=== PATIENT | male | born 1955 | race Caucasian/White ===

== ENCOUNTER 2016-07-12 06:26 | Inpatient (IN) ==
[2016-07-12] MEDS ORDERED: Dexamethasone 4 MG/ML VIAL ONE (06:42)
[2016-07-12] MEDS ORDERED: *HR* Rocuronium Bromide 50 MG/5 ML VIAL ONE (06:42)
[2016-07-12] MEDS ORDERED: Lidocaine -MPF 2% 2 ML VIAL ONE ×2 (06:42→07:51)
[2016-07-12] MEDS ORDERED: Ondansetron 4 MG/2 ML VIAL ONE (06:42)
[2016-07-12] MEDS ORDERED: *HR* Phenylephrine 10 MG/ML VIAL ONE (06:42)
[2016-07-12] MEDS ORDERED: *HR* Etomidate 40 MG/20 ML VIAL IVP ONE (06:43)
[2016-07-12] MEDS ORDERED: *HR* Heparin 5,000 UNIT/ML VIAL ONE (06:43)
[2016-07-12] MEDS ORDERED: *HR* FentaNYL (PF) 100 MCG/2 ML VIAL ONE ×2 (06:48→08:08)
[2016-07-12] MEDS ORDERED: *HR* Midazolam HCl 5 MG/5 ML VIAL IVP ONE (06:48)
[2016-07-12] MEDS ORDERED: NiCARdipine 2.5 MG/10 ML Syringe IVPB ONE (06:51)
[2016-07-12] MEDS ORDERED: CeFAZolin Pre 2,000 MG/100 ML 2,000 MG/100 ML BAG IVPB ONE (06:59)
[2016-07-12] MEDS ORDERED: Vancomycin 1,500 MG in D5% in Water 250 ML IVPB ONE ×2 (06:59→20:00)
[2016-07-12] MEDS ORDERED: Ringers Solution, Lactated 1,000 ML IVC SCH ×2 (07:00→11:30)
--- NOTE | 2016-07-12 07:01 | History & Physical Report ---
Date of Encounter: 07/12/16 Time of Encounter: 06:55 24 Hour HP Update - Instructions Instructions: If the History and Physical is less than 30 days old and was completed prior to A.M. admission and or procedure and has NOT been updated on calendar day of procedure please complete this update prior to performing procedure. - Update Patient reports changes in Medical Condition: No Changes in assessment/condition: No Changes in Medication: No Preop tests/diagnostics Reviewed: Yes Surgery Remains Indicated: Yes Consent for Planned Operative Procedure(s) Verified: Yes - Pre-Operative Checklist Preoperative Checklist Indicated: Yes Prophylactic Antibiotic Ordered: Yes (vancomycin due to MRSA risk) Home Medications Include Beta Zhen: No Beta Zhen Taken Today (Day of Surgery): No Beta Zhen Taken Yesterday (Day Prior to Surgery): No Is VTE Prophylaxis Indicated?: Yes
--- NOTE | 2016-07-12 07:08 | Anesthesia Evaluation PreOp ---
Date of Encounter: 07/12/16 Time of Encounter: 07:05 - Past History Planned Operation: endovascular AAA repair, right femoral endarterectomy Cardiac History: Denies any Significant Hx Pulmonary History: Smoker, Pack/yr (35pk/yr) HEEL TURNER History: Denies Any Significant HX Other Medical History: Denies Any Significant HX Anesthesia History: No Prior Anesthetic Complications, Past Anesthesia (right RENO, halo placement for cervical fracture) Alcohol Use: heavy, recent Drug use: none Medications and Allergies Acetaminophen [Tylenol] 1,000 mg PO Q6HR #90 tablet 06/20/16 [Rx] Aspirin Enteric Coated [Aspirin EC] 81 mg PO DAILY #90 tablet. 06/20/16 [Rx] Allergies No Known Allergies Allergy (Verified 06/20/16 10:49) - Meds/Allergy Pre-op Review Medications Reviewed: Yes Allergies Reviewed: Yes Beta Blockers on Current Med List: No Anesthesia Results - Labs outside labs from [facility] shows H/H of 17.4/52.2, plts 276, Na142, K4.3, BUN 9, Creat .85 - Imaging EKG: report reviewed (NSR) Additional studies: EF64%, negative stress test Anesthesia Exam Height: 1.83m (72in) Weight: 93kg (206lbs) NPO (# of Hours): 8 Pain Scale: 0 Pain Scale Used: Numeric (1 - 10) - HEENT Pupil (Motor): EOMI Mallampati: II Teeth: Normal Oral Opening: Greater than 3 - HEEL TURNER LOC: Oriented HEEL TURNER Motor: Normal RUE, Normal LUE, Normal RLE, Normal LLE, Normal Face HEEL TURNER Sensory: Normal: RUE, LUE, RLE, LLE, Face - Cardiac Rhythm: Regular Murmur: None - Pulmonary Breath Sounds: bilateral Clear Respiratory Effort: Symmetrical Anesthesia Assess/Plan ASA Score: 3 Modified Douglas Scale for Level of Consciousness: Cooperative, oriented, and tranquil Anesthetic Plan: General Monitoring Plan: Standard Monitors, A-Line Recovery Plan: PACU (Discussed risks of GA, need for arterial line and possible need for blood. Possible difficulty with extubation due to smoking (last cigarette this morning). Questions answered and agrees to proceed.)
[2016-07-12] MEDS ORDERED: Vancomycin 1,000 MG VIAL ONE (07:09)
[2016-07-12] MEDS ORDERED: Heparin 1,000 UNITS/500 mL NS 2,000 ML ONE (07:09)
[2016-07-12] MEDS ORDERED: Albuterol 2.5 MG/3 ML NEBULIZER IH ONE (07:10)
[2016-07-12] MEDS ORDERED: Heparin 1,000 UNITS/500 mL NS 0 ML ONE (07:23)
[2016-07-12] MEDS ORDERED: *HR* Metoprolol 5 MG/5 ML VIAL IVP ONE (08:35)
--- NOTE | 2016-07-12 08:59 | Anesthesia Procedures ---
Date of Encounter: 07/12/16 Time of Encounter: 07:55 Procedures: Anesthesia - Arterial Line Consent obtained: written consent Time out performed: Yes Sedation: Versed (mg): 5 Sedation: Fentanyl (mcg): 100 Amount of Anesthetic used (mls): 1 Size (Gauge): 20 Length (inches): 1 3/4 Technique Used: sterile prep, guide wire technique, direct puncture technique Post-Procedure: line taped into place Patient tolerated procedure: well, no complications Complications: none Site: Radial R (attempt x 1)
[2016-07-12] MEDS ORDERED: *HR* HYDROmorphone 2 MG/ML SYRINGE ONE (09:37)
[2016-07-12] MEDS ORDERED: *HR* OxyCODONE/APAP 5/325 TABLET PO PRN (11:30)
[2016-07-12] MEDS ORDERED: *HR* Promethazine 25 MG/ML VIAL IVP PRN (11:30)
--- NOTE | 2016-07-12 11:37 | Operative Note ---
Date of procedure: 07/12/16 Pre-op diagnosis: 5.2cm Abdominal Aortic Aneurysm, PVD with claudication Post-op diagnosis: same Procedure: 1. Introduction of catheter into the aorta via right common femoral artery. 2. Introduction of catheter into the aorta via left common femoral artery. 3. Right femoral vessel exposure for endograft placement. 4. Left femoral vessel exposure for endograft placement. 5. Endograft repair of abdominal aortic aneurysm with Cook Zenith graft and two docking limbs including radiologic supervision and interpretation. 6. Right deep and superficial femoral endartectomy with bovine pericardial patch angioplasty. Complications: None Anesthesia: GETA Surgeon: Ignacio Downing Estimated blood loss (cc): 150 Specimen: Right femoral plaque Condition: stable Disposition: PACU Procedure in Detail: Indications: The patient is a 60 year old male who was found to have an abdominal aortic aneurysm. He also presented to clinic with disabling right lower extremity claudication. An angiogram revealed severe right deep and superficial femoral artery stenosis. Procedure: The patient was identified, brought to the operating room and placed in the supine position on the operating room table. After induction of general endotracheal anesthesia, the patient was cleaned and draped in normal sterile fashion. Oblique incisions were made over both groins sharply. Hemostasis was obtained with electrocautery. Using blunt and sharp and electrocautery dissection, the bilateral common, deep and superficial femoral arteries were dissected circumferentially and surrounded with Vesseloops. At this point, the patient received 5000 units of heparin intravenously and then bilateral femoral punctures with large-bore needles were performed. Bentson wires were advanced into the aorta under fluoroscopic view. Given the anatomy, the main body was selected to be the right side of the patient. The needles were exchanged for bilateral #8-Argentine sheaths and a long Pigtail catheter was advanced over the right wire into the aortic arch. The wire was replaced with a Lunderquist wire. The catheter was removed and repositioned in the suprarenal aorta via the left femoral artery. The main body was inserted over the Lunderquist wire with the contralateral limb being in the anterolateral position. An aortogram was then performed at the level of the renal artery. The graft was positioned just inferior to the renal arteries and the first 2 segments were deployed. Again an aortogram revealed adequate infrarenal placement. The graft was then further opened to the contralateral limb exposed. A final angiogram was performed confirming adequate infrarenal placement. The suprarenal stent was deployed in the usual fashion. The contralateral limb was then selected with a Bentson wire using a guiding catheter. Intragraft placement of the wire was confirmed by placing the pigtail and spinning it freely as well as injecting a small amount of contrast. A lunderquist wire was advanced into the aortic arch via the pigtail catheter on the left. An oblique view of the pelvis was performed with contrast to size the left extension limb. The #8-Argentine sheath was removed and exchanged for the appropriate limb, which was advanced under fluoroscopic view and positioned. It was then expanded. The introducer was removed. The remaining portion of the main body was deployed, the top cap was retrieved and the introducer was removed. An oblique view of the right pelvis was performed in a similar fashion to determine the length of the graft on the right. The graft extension was then advanced on the right and positioned in the usual fashion. Upon completion of the graft docking limb extension, a Coda balloon was then advanced into the graft proximal and distal endpoints as well as overlap were expanded with gentle pressure. The balloon was left in the suprarenal position and a Flush catheter was placed in the suprarenal aorta. A flush completion angiogram revealed no evidence of an endoleak. Tension was applied to the Vesseloops in the groins. The bilateral sheaths were then removed. After confirming hemodynamic stability, the wires were then removed. The left femoral arteriotomy was repaired with a running 6-0 Prolene. A longitudinal ateriotomy was made into the right common femoral artery inclusive of the arteriotomy site. It was extended distally into the right superficial femoral artery through the high grade stenotic segment. Using a dental [place], a standard endarterectomy was performed on the deep femoral artery and then on the superficial femoral artery. Proximal and distal endpoints were inspected. No elevated flaps were noted. A bovine pericardial patch was cut to fit the defect and sutured in place with running 6-0 Prolene. Prior to completing the patch anastomosis, each vessel was flushed individually, then reoccluded. Heparinized saline was infused into the lumen. The patch was completed and flow was restored. Antibiotic irrigation was infused into the groins. Platelet rich and platelet poor plasma were infused into the incisions. The bilateral groins were closed with a single layer of 2-0 Vicryl followed by two layers of 3-0 Vicryl followed by a layer of 3-0 monocryl in the subcuticular region. Sterile dressings were applied. The patient was then extubated and taken to the recovery room in stable condition. Device Sizes: 1. Main Body: [id number] 2. Right limb: [id number] 3. Left limb: [id number]
--- NOTE | 2016-07-12 11:56 | Anesthesia Evaluation Post Op ---
Date of Encounter: 07/12/16 Time of Encounter: 11:54 - Vital Signs Vital Signs: Selected Entries 07/12/16 11:45 Temperature 97.6 F Pulse Rate 59 Respiratory Rate 16 Blood Pressure 186/86 O2 Sat by Pulse Oximetry 94 L - Lungs Lungs: Clear Ascult./Percussion - Airway Airway: Non-obstructed - Cardiovascular Regular Rate - Mental Status Mental Status: Alert & Oriented, Answers Appropriately - Pain Pain Scale: 0 Pain Scale used: Numeric (1 - 10) - Nausea Vomiting Nausea Vomiting: Not Present - Hydration Hydration: Tolerates oral liquids, Paz catheter Notes: 07/12/16 11:55 Patient required Vasotec and Hydralazine in PACU. BP is better. - Discharge PostOp Status: Transfer Patient to floor
[2016-07-12] MEDS ORDERED: *HR* HYDROcodone/Acet 5/325 mg TABLET PO PRN (12:04)
[2016-07-12] MEDS ORDERED: Naloxone 0.4 MG/ML INJ IVP PRN (12:04)
[2016-07-12] MEDS ORDERED: Acetaminophen 325 MG TABLET PO PRN (12:04)
[2016-07-12] MEDS ORDERED: *HR* Labetalol 20 MG/4 ML SYRINGE IVP PRN (12:04)
[2016-07-12] MEDS ORDERED: *HR* OxyCODONE Immed Rel 5 MG TABLET PO PRN (12:04)
[2016-07-12] MEDS ORDERED: Ondansetron 4 MG/2 ML VIAL IVP PRN (12:04)
[2016-07-12] MEDS ORDERED: *HR* Morphine 2 MG/ML SYRINGE IVP PRN (12:04)
[2016-07-12] MEDS: Aspirin 325 MG TABLET PO SCH (14:31)
[2016-07-12] MEDS: *HR* Metoprolol 5 MG/5 ML VIAL IVP SCH ×3 (14:32→23:48)
[2016-07-12] MEDS: ceFAZolin 2,000 MG in D5% in Water 100 ML IVPB SCH ×2 (16:06→23:48)
[2016-07-13 04:23] LABS: BUN/Creatinine Ratio 14 (6-26); Blood Urea Nitrogen 13 mg/dL (8-26); Calcium 9.3 mg/dL (8.6-10.8); Carbon Dioxide 19 mEq/L (19-29); Chloride 102 mEq/L (98-109); Glucose 124 mg/dL (70-99); Osmolality,Calculated 278 (280-300); Potassium 4.3 mEq/L (3.5-4.5); Sodium 133 mEq/L (136-145); eGFR For African Americans > 60 (> 60); eGFR For Non-African Americans > 60 (> 60)
[2016-07-13 04:31] LABS: Basophils % 0.2 %; Eosinophils % 0.1 %; Hematocrit 42.1 % (37.5-50.1); Hemoglobin 14.5 g/dL (12.9-16.9); Immature Granulocytes % 0.6 % (0-4); Lymphocytes # 1.4 K/mcL (0.6-4.6); Lymphocytes % 6.3 %; Mean Corpuscular HGB Conc 34.4 g/dL (31.6-35.5); Mean Corpuscular Hemoglobin 33.4 pg (28.0-33.3); Mean Platelet Volume 10.9 fL (9.4-12.4); Monocytes # 1.9 K/mcL (0.0-1.3); Monocytes % 8.8 %; Neutrophils # 18.2 K/mcL (1.6-8.9); Platelet Count 196 K/mcL (140-400); Red Blood Count 4.34 M/mcL (4.19-5.50); Red Cell Distribution Width 12.4 % (11.5-14.5)
[2016-07-13] MEDS ORDERED: *HR* Heparin 5,000 UNIT/ML VIAL SQ SCH ×2 (06:00→07:00)
[2016-07-13] MEDS: *HR* Metoprolol 5 MG/5 ML VIAL IVP SCH (06:12)
--- NOTE | 2016-07-13 07:46 | Discharge Summary ---
Date of Encounter: 07/13/16 Time of Encounter: 08:05 - Discharge Diagnosis (1) Abdominal aortic aneurysm (AAA) without rupture Priority: Primary Status: Chronic Comments: The patient is postoperative day #1 after endograft repair of his abdominal aortic aneurysm and right femoral endarterectomy. He tolerated the procedure well. He has no hematoma, his feet are warm and his incisions are healing. He is tolerating a diet. He denies abdominal pain. He will be discharged today. (2) Essential hypertension Priority: Secondary Status: Chronic Comments: The patient was counseled regardnig atherosclerotic risk factor reduction. (3) Tobacco abuse Priority: Secondary Status: Chronic Comments: The patient was counseled regarding smoking cessation. (4) Atherosclerosis of [place] arteries of extremities with intermittent claudication, right leg Priority: Secondary Status: Chronic Comments: The patient underwent a right femoral endarterectomy and is healing well. - Discharge Medications Prescriptions: HYDROcodone/Acet 5/325 mg [[place] 5-325 mg] 1 tab PO Q4H PRN #40 tablet PRN Reason: POSTOPERATIVE PAIN Home Medications: Aspirin 325 - 650 mg PO DAILY PRN 07/12/16 [History] Aspirin 325 mg PO DAILY #0 tablet 07/13/16 [Rx] HYDROcodone/Acet 5/325 mg [[place] 5-325 mg] 1 tab PO Q4H PRN #40 tablet 07/13/16 [Rx] Allergies/Adverse Reactions: Allergies No Known Allergies Allergy (Verified 07/12/16 07:38) Date of admission: 07/12/16 12:03 Primary care physician: Nicholas Tripp MD Procedure(s) Performed: Endograft repair of aortic aneurysm and right femoral endaterectomy. Discharging clinician: Ignacio Downing Anticipated date of discharge: 07/13/16 - Patient Status Disposition: Home, Self-Care Condition: Good Functional capacity at discharge: independent ambulation Overall status at discharge: patient is back to baseline - Discharge Instructions Instructions: Abdominal Aortic Aneurysm (DC), Remote Superficial Femoral Artery Endarterectomy (DC) Follow Up With: Nicholas Tripp MD [Primary Care Provider] - 07/18/16 10:30 am (office called after patient had left, called patient at home with the appointment) Ignacio Downing MD [Partnered Physician] - 08/27/16 1:00 pm Additional Instructions: MAY REMOVE BANDAGE AND SHOWER ON 07/14/16. NO TUB BATHS OR SWIMMING UNTIL 08/03/16. WASH WOUNDS GENTLY AND PAT TO DRY. APPLY DRY GAUZE TO WOUNDS DAILY FOR [address] DOWNING AT [phone] WITH QUESTIONS OR CONCERNS. - Diet and Activity Activity: increase activity as tolerated Diet: low fat, low cholesterol - Hospital Course Hospital course: Mr. Bates is a 60 year old male with a history of an abdominal aortic aneurysm and peripheral vascular disease. He underwent endograft repair of his aneurysm and a right femoral endarterctomy on 07/12/16. He tolerated the procedures well and was discharged in stable condition on postoperative day #1 without complication. - Time Spent with Patient Total time spent providing and/or coordinating discharge services: Exam Vital Signs, Last 4 Hours Pulse BP 07/13/16 06:00 77 165/99 General: Present: Conversant, No Apparent Distress HEENT: Present: Pupils equal Cardiac: Present: Reg Rate and Rhythm, Normal S1 and S2 Lungs: Present: Normal Breath Sounds, No Wheeze, Rales, Rhonchi Neuro: Present: Alert and responsive, No focal deficits noted, Motor nerves grossly intact, Sensory nerves grossly intact Abdomen: Present: Non-tender. Absent: Masses Vascular: Present: Normal capillary refill, Pulse, normal, Surgical incisions ( incisions clean, dry and intact without erythema, draiange or hematoma). Absent : Cyanosis, Edema Skin: Absent: No rashes noted on visualized skin - VTE Documentation of Mechanical Device: Intermittent pneumatic compression device
[2016-07-13] MEDS: Aspirin 325 MG TABLET PO SCH (07:57)
[2016-07-13 08:10] VITALS: BP 153/86
== END 2016-07-13 09:57 | disposition home or self-care (01) | DRG 181 ==
LOC: SAMDAY 06:26 → 2NNU 12:03
PROVIDERS: ADMIT Surgery; ATTEND Surgery

== ENCOUNTER 2018-06-11 11:49 | Inpatient (IN) ==
[~2018-06-11 11:49] MED LIST: Bacitracin 50,000 UNIT, Polymyxin B Sulfate 500,000 UNIT, Sodium Chloride IRRigation 1,... IR ONE; Vancomycin 1,000 MG, Sodium Chloride IRRigation 1,000 ML IR ONE
--- NOTE | 2018-06-11 12:00 | Anesthesia Evaluation PreOp ---
Date of Encounter: 06/11/18 Time of Encounter: 12:26 - Past History Planned Operation: Right Carotid Endarterectomy Cardiac History: HTN, Other (endoAAA repair) Pulmonary History: Smoker (45 years) INTERNAL CARVER History: Denies Any Significant HX Other Medical History: Denies Any Significant HX Anesthesia History: No Prior Anesthetic Complications, Past Anesthesia (EndoAAA repair) Alcohol Use: heavy (4-6 beers daily), recent Drug use: none Medications and Allergies Aspirin 325 - 650 mg PO DAILY PRN 07/12/16 [History] Aspirin 325 mg PO DAILY #0 tablet 07/13/16 [Rx] HYDROcodone/Acet 5/325 mg [[place] 5-325 mg] 1 tab PO Q4H PRN #40 tablet 07/13/16 [Rx] Allergy/AdvReac Type Severity Reaction Status Date / Time No Known Allergies Allergy Verified 07/12/16 07:38 - Meds/Allergy Pre-op Review Medications Reviewed: Yes Allergies Reviewed: Yes Beta Blockers on Current Med List: Yes If Beta Blockers taken, Date/Time (Last Dose taken): 06/11/2018 at 0800 Anesthesia Results - Labs Laboratory Tests 06/03/18 06/03/18 06/03/18 16:08 16:08 16:08 WBC 11.3 H Hgb 16.2 Hct 46.5 Plt Count 246 PT 11.0 INR 1.0 APTT 33.3 Sodium 136 Potassium 4.7 BUN 20 Creatinine 1.51 H - Imaging EKG: report reviewed (06/10/2018 SINUS BRADYCARDIA WITH SINUS ARRHYTHMIA NONSPECIFIC ST & T-WAVE ABNORMALITY) Additional studies: 06/29/2016 Stress Impression: Pharmacologic stress ECG is non-diagnostic for ischemia due to baseline ST-T changes and submaximal HR. Gated EF = 64%. There is a large sized, moderate intensity, fixed inferior, inferoseptal, and apex perfusion defect. Wall motion appears normal. These findings are suggestive of artifact. Perfusion imaging was negative for ischemia. Anesthesia Exam O2 Sat Height 1.88 m Height 1.88 m Weight 82.554 kg Weight 82.554 kg O2 Sat by Pulse Oximetry 97 O2 Sat by Pulse Oximetry 97 O2 Sat by Pulse Oximetry 97 Vital Signs Temp Pulse Resp BP Pulse Ox 97.8 F 50 18 133/79 97 06/11/18 12:00 06/11/18 12:00 06/11/18 12:00 06/11/18 12:00 06/11/18 12:00 Height: 6'2'' Weight: 182 lbs NPO (# of Hours): 8 Pain Scale: 0 Pain Scale Used: Numeric (1 - 10) - HEENT Pupil (Motor): EOMI Mallampati: II Teeth: Normal, Missing Oral Opening: Greater than 3 - INTERNAL CARVER LOC: Oriented INTERNAL CARVER Motor: Normal RUE, Normal LUE, Normal RLE, Normal LLE, Normal Face INTERNAL CARVER Sensory: Normal: RUE, LUE, RLE, LLE, Face - Cardiac Rhythm: Regular Murmur: None - Pulmonary Breath Sounds: bilateral Clear Respiratory Effort: Symmetrical Anesthesia Assess/Plan ASA Score: 3 Level of consciousness: Cooperative, Oriented, Tranquil Anesthetic Plan: General Monitoring Plan: Standard Monitors, A-Line Recovery Plan: PACU
[2018-06-11] MEDS ORDERED: Albuterol 2.5 MG/3 ML NEBULIZER IH ONE (12:15)
[2018-06-11] MEDS ORDERED: CeFAZolin Syr 2,000MG/20 ML 2,000 MG/20 ML SYRINGE IVPB ONE (12:15)
--- NOTE | 2018-06-11 12:24 | History & Physical Report ---
Date of Encounter: 06/11/18 Time of Encounter: 12:15 24 Hour HP Update - Instructions Instructions: If the History and Physical is less than 30 days old and was completed prior to A.M. admission and or procedure and has NOT been updated on calendar day of procedure please complete this update prior to performing procedure. - Update Patient reports changes in Medical Condition: No Changes in examination, assessment, or condition: No Changes in Medication: No Preop tests/diagnostics Reviewed: Yes Surgery Remains Indicated: Yes Consent for Planned Operative Procedure(s) Verified: Yes - Pre-Operative Checklist Preoperative Checklist Indicated: Yes Prophylactic Antibiotic Ordered: Yes (Vancomycin due to risk of MRSA) Home Medications Include Beta Zhen: No Beta Zhen Taken Today (Day of Surgery): No Beta Zhen Taken Yesterday (Day Prior to Surgery): No Is VTE Prophylaxis Indicated?: Yes
[2018-06-11] MEDS: Ringers Solution, Lactated 1,000 ML IVC SCH ×2 (12:28→16:12)
[2018-06-11] MEDS ORDERED: *HR* Morphine 2 MG/ML SYRINGE IVP PRN (12:39)
[2018-06-11] MEDS ORDERED: *HR* OxyCODONE Immed Rel 5 MG TABLET PO PRN ×2 (12:39→19:26)
[2018-06-11] MEDS ORDERED: Lidocaine -MPF 2% 2 ML VIAL ONE ×2 (13:44→14:25)
[2018-06-11] MEDS ORDERED: Dexamethasone 4 MG/ML VIAL ONE (13:44)
[2018-06-11] MEDS ORDERED: Ondansetron 4 MG/2 ML VIAL ONE (13:44)
[2018-06-11] MEDS ORDERED: Lidocaine -MPF 4% 5 ML AMPUL ONE (13:44)
[2018-06-11] MEDS ORDERED: *HR* Succinylcholine 200 MG/10 ML VIAL IVP ONE (13:44)
[2018-06-11] MEDS ORDERED: *HR* FentaNYL (PF) 100 MCG/2 ML VIAL ONE (13:50)
[2018-06-11] MEDS ORDERED: *HR* Midazolam HCl 2 MG/2 ML VIAL ONE (13:50)
[2018-06-11] MEDS ORDERED: *HR* Propofol 200 MG/20 ML VIAL IVP ONE (13:50)
[2018-06-11] MEDS ORDERED: *HR* Remifentanil 2 MG VIAL IVP ONE (13:50)
[2018-06-11] MEDS ORDERED: Protamine Sulfate 50 MG/5 ML VIAL IVP ONE (14:01)
[2018-06-11] MEDS ORDERED: Bupivacaine-MPF 0.25% 10 ML VIAL ONE (14:01)
[2018-06-11] MEDS ORDERED: Heparin 1,000 UNITS/500 mL 1,000 ML ONE (14:01)
[2018-06-11] MEDS ORDERED: Vancomycin 1,000 MG VIAL ONE (14:01)
[2018-06-11] MEDS ORDERED: EPHEDrine 50 MG/ML VIAL ONE ×2 (14:55→15:50)
[2018-06-11] MEDS ORDERED: *HR* PHENYLEPHRINE 1,000 MCG/10 ML SYRINGE IVP ONE (15:34)
[2018-06-11] MEDS ORDERED: *HR* Heparin 5,000 UNIT/ML VIAL ONE (15:44)
[2018-06-11] MEDS ORDERED: *HR* Morphine 10 MG/ML VIAL ONE (17:10)
--- NOTE | 2018-06-11 17:19 | Operative Note ---
Date of procedure: 06/11/18 Pre-op diagnosis: 80% Right internal carotid artery stenosis Post-op diagnosis: same Procedure: Right carotid endarterectomy with hemashield patch angioplasty. Complications: None Anesthesia: GETA Surgeon: Ignacio Downing Was there an wet process miller head assistant present: No Estimated blood loss (cc): 50 Specimen: Right carotid plaque Condition: stable Disposition: PACU Procedure in Detail: Indications: The patient is a 62-year-old male with a history of hypertension, peripheral vascular disease and tobacco abuse. He was found to have an 80-99% right internal carotid artery stenosis. A right carotid endarterectomy was recommended to reduce her risk of recurrent symptoms. Procedure: The patient was identified in the preoperative area. The risks, benefits, and alternatives of the procedure were discussed and all questions were answered. The patient was then taken to the operating room and placed in supine position on the operating table. After the induction of general endotracheal anesthesia, the patient was cleaned and draped in normal sterile fashion. A longitudinal incision was made anterior to the right sternocleidomastoid muscle. Hemostasis was obtained via electrocautery. Through a process of blunt, sharp, and electrocautery dissection, the platysma was traversed and the jugular vein was identified. The facial vein was dissected, clamped, divided and ligated with a 2-0 silk suture ligature. The jugular vein was retracted to expose the carotid bifurcation. The patient received 3000 units of heparin intravenously at this time. Proximal dissection of the common and external carotid arteries were performed circumferentially. Dissection of the internal carotid was performed circumferentially. Vessels loops were passed around the internal and external carotid and an umbilical tape was passed from the common carotid artery. The patient received additional 2000 units of heparin intravenously. Additional heparin was given throughout the case to maintain adequate anticoagulation. After waiting adequate time for the heparin to circulate, the vessels were occluded and a longitudinal arteriotomy was made into the common carotid artery and extended into the internal carotid beyond the plaque. Vigorous pulsatile retrograde flow was noted from the internal carotid artery upon release of the vessel loop. Due to the rapid pulsatile retrograde flow, no shunt was placed. A dental [place] was then used to perform a standard endarterectomy. Proximal and distal endpoints were inspected. No elevated flaps were noted. A Hemashield patch was cut to fit the defect and sutured in place with running 6-0 Prolene. Prior to completing the closure, each vessel was flushed and then reoccluded. Heparinized saline was infused into the lumen. The patch was completed. Flow was then restored in the external carotid artery, followed the common carotid artery and lastly the internal carotid artery was opened. A low resistance arterialized signal was present within the internal carotid artery beyond the patch. Thrombin and Gelfoam were used to aid in hemostasis. Meticulous hemostasis was obtained throughout the wound with electrocautery. Platelet rich and platelet poor plasma were infused into the wounds. The sternocleidomastoid was reapproximated with interrupted 3-0 Vicryl. Platelet rich and platelet poor plasma were infused into the wound. A TLS drain was brought through a separate stab incision and sutured in place with 0 silk suture. The platysma was reapproximated with running 3-0 Vicryl. Local anesthetic was infused in the skin. A 3-0 Monocryl was used to reapproximate the skin. A sterile dressing was applied. The patient was extubated, taken to the recovery room in stable condition.
[2018-06-11] MEDS ORDERED: *HR* Heparin 5,000 UNIT/ML VIAL SQ SCH (18:00)
--- NOTE | 2018-06-11 18:27 | Anesthesia Evaluation Post Op ---
Date of Encounter: 06/11/18 Time of Encounter: 18:26 - Vital Signs Vital Signs: Vital Signs/O2 Sat, Most Current Temp Pulse Resp BP Pulse Ox 98.1 F 56 14 131/75 95 06/11/18 17:56 06/11/18 18:16 06/11/18 18:16 06/11/18 18:16 06/11/18 18:16 - Lungs Lungs: Clear Ascult./Percussion - Airway Airway: Non-obstructed - Cardiovascular Regular Rate, Baseline Rhythm - Mental Status Mental Status: Alert & Oriented, Answers Appropriately - Pain Pain Scale: 0 Pain Scale used: Numeric (1 - 10) - Nausea Vomiting Nausea Vomiting: Not Present - Hydration Hydration: Ice chips - Discharge PostOp Status: Transfer Patient to floor
[2018-06-11] MEDS ORDERED: 0.9 % Sodium Chloride 1,000 ML IVC SCH (19:26)
[2018-06-11] MEDS ORDERED: *HR* Labetalol 20 MG/4 ML SYRINGE IVP PRN (19:26)
[2018-06-11] MEDS ORDERED: Acetaminophen 325 MG TABLET PO PRN (19:26)
[2018-06-11] MEDS ORDERED: Ondansetron 4 MG/2 ML VIAL IVP PRN (19:26)
[2018-06-11] MEDS ORDERED: OXYCODONE Oral CONC 10 MG/0.5 ML ORAL.SYG SL PRN ×2 (19:26)
[2018-06-11] MEDS ORDERED: Naloxone 0.4 MG/ML INJ IVP PRN (19:26)
[2018-06-11] MEDS: *HR* Metoprolol 5 MG/5 ML VIAL IVP SCH ×2 (20:08→23:00)
[2018-06-11] MEDS: *HR* HYDROcodone/Acet 5/325 mg TABLET PO PRN (22:56)
[2018-06-12] MEDS ORDERED: *HR* Heparin 5,000 UNIT/ML VIAL SQ SCH (06:00)
[2018-06-12] MEDS: *HR* Metoprolol 5 MG/5 ML VIAL IVP SCH (06:08)
--- NOTE | 2018-06-12 06:45 | Discharge Summary ---
Orders not resulted at time of discharge: Pending orders 06/09/18 Red Blood Cells [BBK] Routine 06/11/18 17:05 Surgical Pathology [PTH] Routine Date of Encounter: 06/12/18 Time of Encounter: 07:45 - Discharge Diagnosis (1) Carotid stenosis, right Priority: Primary Status: Chronic Comments: The patient is postoperative day #1 after right carotid endarterectomy. He tolerated the procedure well. His incisions are healing. He is tolerating a diet. His pain is well-controlled. He will be discharged today. (2) Abdominal aortic aneurysm (AAA) without rupture Priority: Secondary Status: Chronic (3) Essential hypertension Priority: Secondary Status: Chronic Comments: The patient was counseled regarding atherosclerotic risk factor reduction. (4) Atherosclerosis of [place] arteries of extremities with intermittent claudication, right leg Priority: Secondary Status: Chronic (5) Tobacco abuse Priority: Secondary Status: Chronic Comments: The patient was counseled regarding smoking cessation. (6) CKD (chronic kidney disease), stage III Priority: Secondary Status: Chronic - Hospital Course Hospital course: Mr. Bates is a 62 year old male with carotid stenosis, hypertension and tobacco abuse was found have an 80% right internal carotid artery stenosis. The patient was admitted on 06/11/2018 and underwent a right carotid endarterectomy. He tolerated the procedure well. On postoperative day #1 he was healing well, tolerating a diet and his pain was well-controlled. He had no focal neurologic deficits. He was discharged on postoperative day #1 without any complications. - Time Spent with Patient Total time spent providing and/or coordinating discharge services: - Discharge Medications Prescriptions: OxyCODONE/APAP 5/325 [Percocet 5/325 MG] 1 each PO Q6HR PRN 6 Days #24 tablet PRN Reason: Postoperative pain Home Medications: Amlodipine Besylate 10 mg PO DAILY 06/11/18 [History] Aspirin 325 mg PO DAILY 06/11/18 [History] Carvedilol 12.5 mg PO DAILY 06/11/18 [History] Losartan Potassium [Cozaar] 50 mg PO DAILY 06/11/18 [History] OxyCODONE/APAP 5/325 [Percocet 5/325 MG] 1 each PO Q6HR PRN 6 Days #24 tablet 06/12/18 [Rx] Allergies/Adverse Reactions: Allergy/AdvReac Type Severity Reaction Status Date / Time No Known Allergies Allergy Verified 06/11/18 12:56 Date of admission: 06/11/18 Primary care physician: Nicholas Tripp MD Procedure(s) Performed: Right carotid endarterectomy Discharging clinician: Ignacio Downing Anticipated date of discharge: 06/12/18 Exam General: Present: Conversant HEENT: Present: Pupils equal Neck: Present: Other (Incision clean, dry and intact without erythema or drainage or hematoma). Absent: JVD Cardiac: Present: Reg Rate and Rhythm Lungs: Present: Normal Breath Sounds Neuro: Present: Alert and responsive, No focal deficits noted, Cranial nerves grossly intact, Motor nerves grossly intact, Sensory nerves grossly intact Abdomen: Present: Soft Vascular: Present: Normal capillary refill Skin: Present: No rashes noted on visualized skin - Patient Status Disposition: Home, Self-Care Condition: Good Overall status at discharge: patient is back to baseline - Discharge Instructions Follow Up With: Nicholas Tripp MD [Primary Care Provider] - 06/17/18 3:45 pm Ignacio Downing MD [Partnered Physician] - 07/07/18 2:30 pm Additional Instructions: May remove bandage and shower on 06/13/2018. Wash wound gently and pat to dry. No driving for [address] Downing at [phone] with questions or concerns. - Diet and Activity Activity: increase activity as tolerated Diet: advance to your usual diet
[2018-06-12 07:31] VITALS: BP 118/63
[2018-06-12] MEDS: *HR* HYDROcodone/Acet 5/325 mg TABLET PO PRN (08:22)
[2018-06-12] MEDS ORDERED: amLODIPine 5 MG TABLET PO SCH (09:00)
[2018-06-12] MEDS ORDERED: Aspirin 325 MG TABLET PO SCH (09:00)
== END 2018-06-12 09:28 | disposition home or self-care (01) | DRG 24 ==
LOC: SAMDAY 11:49 → 2NNU 12:24
PROVIDERS: ADMIT Surgery; ATTEND Surgery